=== PATIENT | female | born 1980 | race Caucasian/White ===

== ENCOUNTER 2020-04-16 09:37 | Emergency (ER) | payer BC ==
[~2020-04-16] VITALS: Ht 162.6 cm; Wt 59.0 kg
--- NOTE | 2020-04-16 10:00 | Emergency Room Report ---
History of Present Illness General Chief Complaint: Vomiting Source: Patient Present Illness HPI Disclaimer: Please note that this report is being documented using DRAGON technology. This can lead to erroneous entry secondary to incorrect interpretation by the dictating instrument. HPI: 39-year-old G1, P0 female had 6 weeks gestation by dates presents for evaluation of vomiting. Symptoms began approximately 3 AM. Notes multiple episodes of nonbloody emesis throughout the morning. Reports lightheadedness and dizziness. Reports tingling in the fingertips. Denies syncope, chest pain, shortness of breath, cough. Mild abdominal cramping. Denies vaginal bleeding or leakage of fluids. Unable to take her vitamin. Has not yet seen her [employer], appointment scheduled for next week. Denies other medical history. PMH: Reviewed PSH: Reviewed Allergies: Reviewed Social Hx: Reviewed Allergies: Coded Allergies: No Known Allergies (Unverified , 04/16/20) COVID-19 Screening Contact w/high risk pt: No Experienced COVID-19 symptoms?: Yes COVID-19 Testing performed GENERAL MANAGER: No Patient History Now: Yes - 6 weeks Nursing Documentation-PMH Past Medical History: No History, Except For Review of Systems All Other Systems: negative except mentioned in HPI Physical Exam Vital Signs Date Time Temp Pulse Resp B/P (MAP) Pulse Ox O2 Delivery O2 Flow Rate FiO2 04/16/20 09:51 97.7 84 20 114/76 (89) 98 Room Air General: Awake and alert, appears uncomfortable HEENT: NC/AT. EOMI. Cardiovascular: RRR. S1 and S2 normal. No murmur appreciated Resp: Normal work of breathing. No cough, wheezing or crackles appreciated Abdomen: Abdomen is soft, nondistended. Nontender Skin: Intact. No abrasions, laceration or rash over the exposed skin MSK: Normal tone and bulk. Moving all extremities. No obvious deformity. Neuro: Awake and alert. Mentating appropriately. Medical Decision Making Diagnostic Impression: Primary Impression: Abdominal pain during in first trimester Additional Impression: Subchorionic hematoma in first trimester ER Course 39-year-old G1, P0 female 6 weeks gestation presents for evaluation of vomiting. Differential includes is not limited to dehydration, vertigo, gastritis, gastr oenteritis, pancreatitis, cholecystitis, complication of , hyperemesis gravidarum, ectopic , among others. Labs returned largely within normal limits. No significant anemia. The patient's blood type is A+. hCG elevated in expected range. Ultrasound shows a single intrauterine with adequate heart rate and no other findings. There was a small s ubchorionic hematoma. Patient does not require RhoGam given her A positive blood type. She reports feeling much better after receiving IV fluids. Copy of her labs and report provided. Stable for outpatient follow-up with her [employer]. Discussed reasons to return to the emergency department. She understands and agrees with this treatment plan. Laboratory Tests Test 04/16/20 10:00 04/16/20 10:19 White Blood Count 11.8 K/UL (4.8-10.8) H Red Blood Count 4.29 M/UL (4.20-5.40) Hemoglobin 14.8 G/DL (12.0-16.0) Hematocrit 43.3 % (37.0-47.0) Mean Corpuscular Volume 101 FL (80-99) H Mean Corpuscular Hemoglobin 34.5 PG (27.0-31.0) H Mean Corpuscular Hemoglobin Concent 34.3 G/DL (32.0-36.0) Red Cell Distribution Width 12.1 % (11.6-14.8) Platelet Count 352 K/UL (150-450) Mean Platelet Volume 6.9 FL (6.5-10.1) Neutrophils (%) (Auto) % (45.0-75.0) Lymphocytes (%) (Auto) % (20.0-45.0) Monocytes (%) (Auto) % (1.0-10.0) Eosinophils (%) (Auto) % (0.0-3.0) Basophils (%) (Auto) % (0.0-2.0) Differential Total Cells Counted 100 Neutrophils % (Manual) 90 % (45-75) H Lymphocytes % (Manual) 8 % (20-45) L Monocytes % (Manual) 2 % (1-10) Eosinophils % (Manual) 0 % (0-3) Basophils % (Manual) 0 % (0-2) Band Neutrophils 0 % (0-8) Platelet Estimate Adequate Platelet Morphology Normal Macrocytosis 1+ Prothrombin Time 10.9 SEC (9.30-11.50) Prothrombin Time INR 1.0 (0.9-1.1) Activated Partial Thromboplast Time 26 SEC (23-33) Sodium Level 136 MMOL/L (136-145) Potassium Level 3.5 MMOL/L (3.5-5.1) Chloride Level 103 MMOL/L (98-107) Carbon Dioxide Level 24 MMOL/L (21-32) Anion Gap 9 mmol/L (5-15) Blood Urea Nitrogen 13 mg/dL (7-18) Creatinine 0.9 MG/DL (0.55-1.30) Estimated Glomerular Filtration Rate > 60 mL/min (>60) Glucose Level 129 MG/DL (74-106) H Calcium Level 8.4 MG/DL (8.5-10.1) L Total Bilirubin 0.4 MG/DL (0.2-1.0) Aspartate Amino Transferase (AST) 22 U/L (15-37) Alanine Aminotransferase (ALT) 14 U/L (12-78) Alkaline Phosphatase 34 U/L (46-116) L Total Protein 7.5 G/DL (6.4-8.2) Albumin 3.8 G/DL (3.4-5.0) Globulin 3.7 g/dL Albumin/Globulin Ratio 1.0 (1.0-2.7) Lipase 177 U/L (73-393) Human Chorionic Gonadotropin, Quant 4912 mIU/mL (1-6) H Urine Color Yellow Urine Appearance Clear Urine pH 7 (4.5-8.0) Urine Specific [place] 1.015 (1.005-1.035) Urine Protein 1+ (NEGATIVE) H Urine Glucose (UA) Negative (NEGATIVE) Urine Ketones Negative (NEGATIVE) Urine Blood 5+ (NEGATIVE) H Urine Nitrite Negative (NEGATIVE) Urine Bilirubin Negative (NEGATIVE) Urine Urobilinogen Normal MG/DL (0.0-1.0) Urine Leukocyte Esterase 1+ (NEGATIVE) H Urine RBC 2-4 /HPF (0 - 2) H Urine WBC 0-2 /HPF (0 - 2) Urine Squamous Epithelial Cells Occasional /LPF Urine Bacteria Few /HPF (NONE) CT/MRI/US Diagnostic Results CT/MRI/US Diagnostic Results : Impression Final Report EXAM: US Pelvis Transvaginal CLINICAL HISTORY: ABD PAIN TECHNIQUE: Real-time transvaginal pelvic ultrasound with image documentation. Transvaginal imaging was used for better evaluation of the endometrium and adnexa. COMPARISON: None FINDINGS: Uterus: Retroverted uterus measures 7.2 x 4.4 cm. Gestational sac identified within the endometrial cavity, with mean sac diameter measuring 1.29 cm. Small subchorionic hemorrhage. An embryonic pole is identified. [place]-rump length measures 0.46 cm. heart rate 124 bpm. Cervix is long and closed. Placenta/amniotic fluid: Cannot be adequately evaluated due to the early gestational age. Ovaries: The right ovary measures 3.2 x 1.5 x 3.3 cm. Corpus luteum in the right ovary. The left ovary measures 3.6 x 1.2 bilaterally. 2.0 cm. The ovaries demonstrate normal color flow. Other: Small amount of free fluid is identified. No adnexal mass. LMP: 03/03/2020 GA by LMP: 6 weeks 2 days ARETHA by LMP: 12/08/2020 Average ultrasound age: 5 weeks 5 days ARETHA by ultrasound: 12/12/2020 IMPRESSION: 1. Single intrauterine with heart rate of 124 bpm. 2. Small subchorionic hemorrhage. Radiologist: Ciro Mendenhall M.D. Electronically Signed: 04/16/20 13:19 Study ready at 12:57 and initial results transmitted at 13:19 Final Report EXAM: US Abdomen Complete CLINICAL HISTORY: ABD PAIN TECHNIQUE: Real-time ultrasound of the abdomen with image documentation. COMPARISON: None FINDINGS: Liver: Liver measures 15.9 cm. No intrahepatic bile duct dilation. Gallbladder: No gallstones or sludge. No gallbladder wall thickening or pericholecystic fluid. Common bile duct: Normal common bile duct measuring 3.7 mm. No stones. No dilation. Pancreas: Visualized portions of the pancreas are grossly unremarkable. Kidneys: Right kidney measures 12.8 cm in length. No hydronephrosis or stone. Left kidney measures 10.3 cm in length. No hydronephrosis or stone. Spleen: Spleen measures 10.7 cm. No focal lesion. Aorta: See below. Inferior vena cava: Visualized portions of the IVC and aorta are grossly unremarkable. Other vasculature: Patent main portal vein with normal direction of flow. Free fluid: No ascites. IMPRESSION: No acute findings in the abdomen. Radiologist: Ciro Mendenhall M.D. Electronically Signed: 04/16/20 13:37 Study ready at 13:12 and initial results transmitted at 13:37 Last Vital Signs Date Time Temp Pulse Resp B/P (MAP) Pulse Ox O2 Delivery O2 Flow Rate FiO2 04/16/20 09:51 97.7 84 20 114/76 (89) 98 Room Air Disposition: HOME, SELF-CARE Condition: Stable Scripts Doxylamine Succinate/Vit B6 (Doxylamine-Pyridoxine 10-10 mg) 1 Each Tablet.dr 1 EACH PO QHS, #30 TAB Prov: Damien Huffman MD 04/16/20 Pyridoxine Hcl* (VITAMIN B-6*) 50 Mg Tablet 50 MG ORAL DAILY for 30 Days, #30 TAB 0 Refills Prov: Jay Mccormick MD 04/16/20 Jay Mccormick MD Apr 16, 2020 10:00
[2020-04-16 10:26] VITALS: BP 117/75
[2020-04-16 10:30] LABS: ANION GAP 9 mmol/L (5-15); BLOOD UREA NITROGEN 13 mg/dL (7-18); CALCIUM 8.4 MG/DL (8.5-10.1); CARBON DIOXIDE 24 MMOL/L (21-32); CHLORIDE 103 MMOL/L (98-107); CREATININE 0.9 MG/DL (0.55-1.30); POTASSIUM 3.5 MMOL/L (3.5-5.1); SODIUM 136 MMOL/L (136-145)
[2020-04-16 10:33] LABS: APPEARANCE,URINE CLEAR; BILIRUBIN, URINE NEGATIVE (NEGATIVE); GLUCOSE, URINE (UA) NEGATIVE (NEGATIVE); KETONES,URINE NEGATIVE (NEGATIVE); LEUKOCYTE ESTERASE ,URINE 1+ (NEGATIVE); NITRITE,URINE NEGATIVE (NEGATIVE); PH,URINE 7 (4.5-8.0); PROTEIN,URINE 1+ (NEGATIVE); UROBILINOGEN,URINE NORMAL MG/DL (0.0-1.0)
[2020-04-16 10:34] LABS: ALANINE AMINOTRANSFERASE 14 U/L (12-78); ALBUMIN 3.8 G/DL (3.4-5.0); ALKALINE PHOSPHATASE 34 U/L (46-116); ASPARTATE AMINO TRANSFERASE 22 U/L (15-37); BILIRUBIN,TOTAL 0.4 MG/DL (0.2-1.0)
[2020-04-16 10:36] LABS: COLOR,URINE YELLOW
[2020-04-16 10:37] LABS: HEMATOCRIT 43.3 % (37.0-47.0); HEMOGLOBIN 14.8 G/DL (12.0-16.0); MEAN CORPUSCULAR VOLUME 101 FL (80-99); PLATELET COUNT 352 K/UL (150-450); RED BLOOD COUNT 4.29 M/UL (4.20-5.40); RED CELL DISTRIBUTION WIDTH 12.1 % (11.6-14.8); WHITE BLOOD COUNT 11.8 K/UL (4.8-10.8)
[2020-04-16 13:08] VITALS: BP 126/78
[2020-04-16] MEDS ORDERED: PYRIDOXINE HCL50 MG ORAL (13:16)
--- NOTE | 2020-04-16 13:20 | Diagnostic Imaging Report ---
EXAM: US Pelvis Transvaginal CLINICAL HISTORY: ABD PAIN TECHNIQUE: Real-time transvaginal pelvic ultrasound with image documentation. Transvaginal imaging was used for better evaluation of the endometrium and adnexa. COMPARISON: None FINDINGS: Uterus: Retroverted uterus measures 7.2 x 4.4 cm. Gestational sac identified within the endometrial cavity, with mean sac diameter measuring 1.29 cm. Small subchorionic hemorrhage. An embryonic pole is identified. [place]-rump length measures 0.46 cm. heart rate 124 bpm. Cervix is long and closed. Placenta/amniotic fluid: Cannot be adequately evaluated due to the early gestational age. Ovaries: The right ovary measures 3.2 x 1.5 x 3.3 cm. Corpus luteum in the right ovary. The left ovary measures 3.6 x 1.2 bilaterally. 2.0 cm. The ovaries demonstrate normal color flow. Other: Small amount of free fluid is identified. No adnexal mass. LMP: 03/03/2020 GA by LMP: 6 weeks 2 days ARETHA by LMP: 12/08/2020 Average ultrasound age: 5 weeks 5 days ARETHA by ultrasound: 12/12/2020 IMPRESSION: 1. Single intrauterine with heart rate of 124 bpm. 2. Small subchorionic hemorrhage.
--- NOTE | 2020-04-16 13:37 | Diagnostic Imaging Report ---
EXAM: US Abdomen Complete CLINICAL HISTORY: ABD PAIN TECHNIQUE: Real-time ultrasound of the abdomen with image documentation. COMPARISON: None FINDINGS: Liver: Liver measures 15.9 cm. No intrahepatic bile duct dilation. Gallbladder: No gallstones or sludge. No gallbladder wall thickening or pericholecystic fluid. Common bile duct: Normal common bile duct measuring 3.7 mm. No stones. No dilation. Pancreas: Visualized portions of the pancreas are grossly unremarkable. Kidneys: Right kidney measures 12.8 cm in length. No hydronephrosis or stone. Left kidney measures 10.3 cm in length. No hydronephrosis or stone. Spleen: Spleen measures 10.7 cm. No focal lesion. Aorta: See below. Inferior vena cava: Visualized portions of the IVC and aorta are grossly unremarkable. Other vasculature: Patent main portal vein with normal direction of flow. Free fluid: No ascites. IMPRESSION: No acute findings in the abdomen.
[2020-04-16] MEDS ORDERED: DOXYLAMINE-PYR1 EACH PO (14:35)
[2020-04-16 14:40] VITALS: BP 130/72
== END 2020-04-16 14:41 | disposition home or self-care (01) ==
LOC: EMR 10:10
DX: O26.891 Other specified pregnancy related conditions, first trimester (principal); R10.9 Unspecified abdominal pain; O20.9 Hemorrhage in early pregnancy, unspecified; Z3A.01 Less than 8 weeks gestation of pregnancy
CPT/HCPCS: 36415; 76700; 76817; 80053; 81003; 83690; 84702; 85007; 85025; 85610; 85730; 86850; 86900; 86901; 96361; 96374; 99284; J2405; J7030